=== PATIENT | female | born 1965 | race Caucasian/White ===

== ENCOUNTER 2021-12-06 14:41 | Emergency (ER) | payer MEDICAID ==
[~2021-12-06] VITALS: Ht 167.6 cm; Wt 74.8 kg
[2021-12-06 15:55] LABS: *BILIRUBIN,URIN NEGATIVE (NEGATIVE); *BLOOD, URINE 2+ (NEGATIVE); *CLARITY,URINE CLEAR (CLEAR); *COLOR,URINE YELLOW (YELLOW); *KETONES,URINE NEGATIVE (NEGATIVE); *URINE HCG, QUAL NEG (NEGATIVE); *UROBILINOGEN,URINE 0.2 E.U./dl (NORMAL); LEUKOCYTE ESTERASE ,URINE TRACE (NEGATIVE); NITRITE, URINE NEGATIVE (NEGATIVE); PH,URINE 5.5 (5.0-8.0); UGLUCOSE NEGATIVE (NEGATIVE)
--- NOTE | 2021-12-06 16:30 | NUR ---
Pt resting in bed, no complaints, no distress noted.
[2021-12-06] MEDS ORDERED: CEPH500T PO (16:55)
[2021-12-06] MEDS ORDERED: NAPROXEN 500 MG TABLET ONE (17:00)
[2021-12-06] MEDS ORDERED: NAPROXEN 500 MG TABLET PO ONE (17:00)
[2021-12-06] MEDS ORDERED: ONDANSETRON HCL 4 MG TABLET PO ONE (17:00)
[2021-12-06 17:01] LABS: BACTERIA,URINE FEW /HPF (NONE SEEN); RBC,URINE 20-50 /HPF (0-3); SQUAMOUS EPITHELIAL CELL,UR FEW /HPF (NONE SEEN); WBC,URINE 80-100 /HPF (0-3)
[2021-12-06] MEDS ORDERED: ONDANSETRON HCL 4 MG TABLET ONE (17:01)
--- NOTE | 2021-12-06 17:05 | NUR ---
Patient discharged to home in stable condition. Written and verbal after care instructions given. Patient verbalizes understanding of instructions. Stressed follow up or return to ER for worsening s/s.
[2021-12-06 17:06] VITALS: BP 122/80
== END 2021-12-06 17:07 | disposition home or self-care (01) ==
LOC: ER 14:43 → EDBD 14:43 → ER 17:07
DX: N39.0 Urinary tract infection, site not specified (principal); R51.9 Headache, unspecified
CPT/HCPCS: 84703; 87077; 87086; A4663; Q0162